=== PATIENT | female | born 1990 | race American Indian/Alaskan Native ===

== ENCOUNTER 2020-11-25 09:10 | Emergency (ER) | payer SELFPAY ==
[2020-11-25 10:05] VITALS: BP 136/80
--- NOTE | 2020-11-25 11:14 | Emergency Department Report ---
ED Lower Extremity HPI - General Chief Complaint: Extremity Injury, Lower Stated Complaint: RT ANKLE INJURY Source: patient Mode of arrival: Ambulatory Limitations: No Limitations - History of Present Illness Initial Comments: 30-year-old -[place] female presents to the emergency room for right ankle injury 2 weeks ago. Patient states that she is having swelling and pain is not improving and actually getting worse with more weightbearing. She states she has been taken ibuprofen which not is helping as much. She did do ice therapy and elevation. This happened while she was at work. Denies any past medical history. Currently on her menstrual cycle started 11/17/2020. Complaint: ankle injury Onset/Timin -: week(s) Injury: Ankle: Right Type of Injury: inversion, eversion Place: work Severity: severe Severity scale (0 -10): 8 Improves With: immobilization, rest Worsens With: weight bearing, movement Context: fall Associated Symptoms: swelling, able to partially bear weight - Related Data Allergies Allergy/AdvReac Type Severity Reaction Status Date / Time No Known Allergies Allergy Unverified 11/25/20 10:06 ED Review of Systems ROS: Stated complaint: RT ANKLE INJURY Other details as noted in HPI Comment: All other systems reviewed and negative ED Past Medical Hx - Past Medical History Hx Asthma: Yes - Surgical History Past Surgical History?: No ED Physical Exam - General Limitations: No Limitations General appearance: alert, in no apparent distress - Head Head exam: Present: atraumatic, normocephalic - Eye Eye exam: Present: normal appearance - ENT ENT exam: Present: mucous membranes moist - Neck Neck exam: Present: normal inspection, full ROM - Respiratory Respiratory exam: Absent: accessory muscle use - Cardiovascular Cardiovascular Exam: Present: regular rate - Expanded Lower Extremity Exam Right Hip exam: Present: full ROM Upper Leg exam: Present: normal inspection, full ROM Knee exam: Present: normal inspection, full ROM Lower Leg exam: Present: normal inspection, full ROM Ankle exam: Present: normal inspection, tenderness, swelling Foot/Toe exam: Present: normal inspection, full ROM. Absent: tenderness, swelling, abrasion Neuro vascular tendon exam: Present: no vascular compromise - Back Exam Back exam: Present: normal inspection - Neurological Exam Neurological exam: Present: alert, oriented X3 - Psychiatric Psychiatric exam: Present: normal affect, normal mood - Skin Skin exam: Present: warm, dry, intact, normal color. Absent: rash ED Course Vital Signs 11/25/20 10:02 Temperature 98.4 F Pulse Rate 71 Respiratory 18 Rate Blood Pressure 136/80 [Left] O2 Sat by Pulse 100 Oximetry ED Lower Extremity MDM - Radiology Data Radiology results: report reviewed [facility] [address] [place] [address] XRay Report Signed Patient: ALLYSON TATE MR#: [id number] : 1990 Acct:[id number] Age/Sex: 30 / F ADM Date: 11/25/20 Loc: ED Attending Dr: Ordering Physician: AURA HERNANDEZ Date of Service: 11/25/20 Procedure(s): XR ankle 3+V RT Accession Number(s): [id number] cc: AURA HERNANDEZ Fluoro Time In Minutes: RIGHT ANKLE 3 VIEWS INDICATION / CLINICAL INFORMATION: Right ankle injury 2 weeks ago COMPARISON: None available. FINDINGS: BONES / JOINT(S): No acute fracture or subluxation. No significant arthritis. There is a rounded ossification inferior to the medial malleolus which appears to be well- corticated and appears to be an accessory ossification. It is possible this represents a tiny avulsion fragment but I feel that is less likely. SOFT TISSUES: There is mild soft tissue swelling over the medial malleolus. ADDITIONAL FINDINGS: None. Signer Name: Vikas Gomez MD Signed: 11/25/2020 11:58 AM Workstation Name: [id number] Transcribed By: Dictated By: Vikas Gomez MD Electronically Authenticated By: Vikas Gomez MD Signed Date/Time: 11/25/20 1158 DD/ 1157 TD/TT: Print Cancel - Medical Decision Making 30-year-old -[place] female presents to the emergency room for right ankle injury 2 weeks ago. Patient states that she is having swelling and pain is not improving and actually getting worse with more weightbearing. She states she has been taken ibuprofen which not is helping as much. She did do ice therapy and elevation. This happened while she was at work. Denies any past medical history. Currently on her menstrual cycle started 11/17/2020. X-ray 3 view right ankle has been ordered. X-ray of right ankle is negative for any acute abnormalities it does show that you have soft tissue swelling. Critical care attestation.: If time is entered above; I have spent that time in minutes in the direct care of this critically ill patient, excluding procedure time. ED Disposition Clinical Impression: Right ankle injury Disposition: DC- TO HOME OR SELFCARE Is pt being admited?: No Does the pt Need Aspirin: No Condition: Stable Instructions: Ankle Sprain, [id number] Additional Instructions: X-ray of right ankle is negative for any acute abnormalities it does show that you have soft tissue swelling. I recommend Fernandez bandage or ankle sleeve for support. Continue to elevate take your ibuprofen or Aleve you can incorporate Tylenol as well. Follow-up with the orthopedic if no improvement in the next week or 2. Referrals: YOLY DUENAS MD [Staff Physician] - 3-5 Days Forms: Work/School Release Form(ED)
--- NOTE | 2020-11-25 12:02 | XRay Report ---
RIGHT ANKLE 3 VIEWS INDICATION / CLINICAL INFORMATION: Right ankle injury 2 weeks ago COMPARISON: None available. FINDINGS: BONES / JOINT(S): No acute fracture or subluxation. No significant arthritis. There is a rounded ossi fication inferior to the medial malleolus which appears to be well-corticated and appears to be an ac cessory ossification. It is possible this represents a tiny avulsion fragment but I feel that is less likely. SOFT TISSUES: There is mild soft tissue swelling over the medial malleolus. ADDITIONAL FINDINGS: None. Signer Name: Vikas Gomez MD Signed: 11/25/2020 11:58 AM Workstation Name: [id number]
== END 2020-11-25 12:20 | disposition home or self-care (01) ==
LOC: ED 09:10
DX: S99.911A Unspecified injury of right ankle, initial encounter (principal); X58.XXXA Exposure to other specified factors, initial encounter; Y93.89 Activity, other specified; Y92.89 Other specified places as the place of occurrence of the external cause; Y99.8 Other external cause status
CPT/HCPCS: 99283